=== PATIENT | female | born 1980 | race Caucasian/White ===

== ENCOUNTER 2019-03-22 14:44 | Emergency (ER) | payer OTHER, MEDICAID, SELFPAY ==
[2019-03-22 14:54] VITALS: BP 113/69; PULSE 81; RESP 15; TEMP 36.6; O2SAT 100; BMI 26.6
--- NOTE | 2019-03-22 15:00 | DI.RAD.S_ITS ---
PROCEDURE: XR ANKLE RT MIN 3V INDICATIONS: pain TECHNIQUE: 3 views of the ankle were acquired. COMPARISON: None. FINDINGS: Bones: No fractures or dislocations. Ankle mortise is normally aligned. No suspicious bony lesions. The talar dome demonstrates no elvira abnormality. Soft tissues: No tibiotalar joint effusion. Achilles tendon appears normal. IMPRESSION: Negative plain films. Dictated by: Nikita Carolina M.D. on 03/22/2019 at 14:16 Approved by: Nikita Carolina M.D. on 03/22/2019 at 14:17
--- NOTE | 2019-03-22 15:35 | ED.LOWEXIN ---
HPI - Extremity Injury (Lower) <OTILIO Fisher - Last Filed: 03/22/19 16:53> General Chief Complaint: Extremity Injury, Lower Stated Complaint: right ankle/foot injury today Time Seen by Provider: 03/22/19 14:53 Source: patient Mode of arrival: Ambulatory History of Present Illness HPI Narrative: 38-year-old female presents emergency department today complaining of left foot pain after stepping off a step and inverting her right ankle. Patient states she was not able to put weight on it immediately but after resting on the couch with some ice for a few minutes she was able to stand on it but noted increased pain after she started walking. Patient rates her pain as a dull aching 4/10 that is worse with walking and better with rest. She denies any previous injury to her foot. She denies chest pain, shortness of breath, chills, head trauma, nausea, vomiting, or diarrhea. Related Data Allergies Allergy/AdvReac Type Severity Reaction Status Date / Time No Known Drug Allergies Allergy Verified 03/22/19 14:54 Review of Systems <OTILIO Fisher - Last Filed: 03/22/19 16:53> Review of Systems Narrative: REVIEW OF SYSTEMS: GENERAL: Denies fever or chills. HENT: No head trauma. EYES: No double vision or vision loss. CARDIOVASCULAR: No chest pain or syncope. RESPIRATORY: No shortness of breath or cough. GASTROINTESTINAL: No nausea, vomiting, diarrhea, or constipation. MUSCULOSKELETAL: Complains of right ankle pain, see HPI. INTEGUMENTARY: No rash, lesions, or pruritus. NEURO: No numbness, tingling. PSYCH: No behavior or mood changes. Patient History <OTILIO Fisher - Last Filed: 03/22/19 16:53> Medical/Surgical History Medical History No significant medical problems (Acute) Exam <OTILIO Fisher - Last Filed: 03/22/19 16:53> Narrative Exam Narrative: PHYSICAL EXAMINATION: GENERAL: Well groomed, alert, and cooperative. Answers questions promptly and appropriately. Vital signs noted. HENT: Normocephalic, atraumatic. EYES: Symmetrical, sclera white, no periorbital swelling. CARDIOVASCULAR: S1 and S2 sounds normal. Regular rate and rhythm, no murmurs, clicks, or bruits. No pedal edema. RESPIRATORY: Normal respiratory rate, trachea midline, airway patent. No stridor, nasal flaring or accessory muscle use. Lungs are clear in all [place]. MUSCULOSKELETAL: Tenderness to lateral aspect of right ankle with a small amount of ecchymosis and swelling, no malleolus tenderness. Patient able to bear weight with Normal gait and coordination. Equal tone and mass bilaterally. Baljeet bandage applied in the emergency department. EXTREMITIES: CMS intact. No pedal edema. SKIN: Warm, dry, soft, appropriate color for ethnicity. No lesions, rashes, or wounds. NEURO: Alert and Oriented X 3. No sensory deficits. PSYCH: Appropriate affect and mood. Initial Vital Signs Initial Vital Signs: Vital Signs Temperature 97.8 F 03/22/19 14:54 Pulse Rate 81 03/22/19 14:54 Respiratory Rate 15 03/22/19 14:54 Blood Pressure 113/69 03/22/19 14:54 Pulse Oximetry 100 03/22/19 14:54 <DO Sampson Brito Last Filed: 03/22/19 17:14> Initial Vital Signs Initial Vital Signs: Vital Signs Temperature 97.8 F 03/22/19 14:54 Pulse Rate 81 03/22/19 14:54 Respiratory Rate 15 03/22/19 14:54 Blood Pressure 113/69 03/22/19 14:54 Pulse Oximetry 100 03/22/19 14:54 Procedures <OTILIO Fisher - Last Filed: 03/22/19 16:53> Orthopedic Splinting/Casting Ankle: Side: right Lower Extremity Injury Location: ankle Lower Extremity Immobilizer: Baljeet wrap Post splinting vascular exam: intact Placed by: Nursing Course <OTILIO Fisher - Last Filed: 03/22/19 16:53> Orders Ordered: ED Orders 03/22/19 15:00 XR ankle RT min 3V Stat Vital Signs Vital signs: Vital Signs - 8 hr 03/22/19 14:54 Temperature 97.8 F Pulse Rate 81 Respiratory Rate 15 Blood Pressure 113/69 Pulse Oximetry 100 <DO Sampson Brito Last Filed: 03/22/19 17:14> Orders Ordered: ED Orders 03/22/19 15:00 XR ankle RT min 3V Stat Vital Signs Vital signs: Vital Signs - 8 hr 03/22/19 14:54 Temperature 97.8 F Pulse Rate 81 Respiratory Rate 15 Blood Pressure 113/69 Pulse Oximetry 100 [facility] - Extremity Injury (Lower) <OTILIO Fisher - Last Filed: 03/22/19 16:53> Lab Data Attestation: I reviewed the patient's lab results. Imaging Data Chest XR: Radiologist's impression: [address] [address] XRay Report Signed Patient: Hayden Bruno EMR#: [id number] : 1980Acct:[id number] Age/Sex: 38 / FDate of Service: 03/22/19 Loc: ED Accession Number: [id number] Procedure: XR ankle RT min 3V Ordering Provider: Ciara Galdamez PROCEDURE: XR ANKLE RT MIN 3V INDICATIONS: pain TECHNIQUE: 3 views of the ankle were acquired. COMPARISON: None. FINDINGS: Bones: No fractures or dislocations. Ankle mortise is normally aligned. No suspicious bony lesions. The talar dome demonstrates no elvira abnormality. Soft tissues: No tibiotalar joint effusion. Achilles tendon appears normal. IMPRESSION: Negative plain films. [facility] Narrative Medical decision making narrative: Exam and history consistent with ankle sprain. Less concern for fracture due to negative x-ray patient's ability to bear weight on ankle. Patient was instructed to use Baljeet wrap, ice, and elevation as needed the over the next few weeks. Return precautions given and follow-up instructions discussed. Discharge Plan Departure Patient Disposition: Home Clinical Impression: Ankle sprain Qualifiers: Encounter type: initial encounter Involved ligament of ankle: unspecified ligament Laterality: right Qualified Code(s): S93.401A - Sprain of unspecified ligament of right ankle, initial encounter Discharge Date/Time: 03/22/19 16:13 Instructions: DI for Ankle Sprain Activity Restrictions/Additional Instructions: Thank you for entrusting me with your care today. As discussed, your x-rays are negative for any fractures. You may use an Baljeet bandage or ankle brace to help with pain. Please elevate her ankle when possible, you may use ice and ibuprofen as needed for pain control. Please follow up with her primary care provider in the next few weeks if symptoms continue. Return emergency department if you develop chest pain, shortness of breath, severe abdominal pain, facial droop, or other concerning symptoms. Referrals: Ion Urban ARNP [Primary Care Provider] - <Efrem Kelly DO - Last Filed: 03/22/19 17:14> Sign Out Provider Sign Out Attestation: I was available for consultation during this patient's emergency department visit. This chart is signed by myself for administrative purposes only. I did not have direct contact with this patient during this visit. They were seen independently by the APC.
== END 2019-03-22 16:13 | disposition home or self-care (01) ==
PROVIDERS: Emergency Provider Nurse Practitioner; Family Provider Registered Nurse; PCP Registered Nurse
DX: S93.401A Sprain of unspecified ligament of right ankle, initial encounter (principal)
CPT/HCPCS: 73610; 99282; 99283

== ENCOUNTER → 2020-09-07 16:24 | Outpatient (CLI) | payer OTHER, MEDICAID, SELFPAY ==
[2020-09-07] MEDS: COVID-19 VACC #1, MRNA(MOD) 100 MCG/0.5 ML VIAL IM (16:30)
== END ==
PROVIDERS: Family Provider Registered Nurse; PCP Registered Nurse; Visit Provider Internal Medicine
DX: Z23 Encounter for immunization (principal)
CPT/HCPCS: 0011A; 91301

== ENCOUNTER → 2020-10-13 16:05 | Outpatient (CLI) | payer OTHER, MEDICAID, SELFPAY ==
[2020-10-13] MEDS: COVID-19 VACC #2, MRNA(MOD) 100 MCG/0.5 ML VIAL IM (16:17)
== END ==
PROVIDERS: PCP Registered Nurse; Visit Provider Internal Medicine
DX: Z23 Encounter for immunization (principal)
CPT/HCPCS: 0012A; 91301